=== PATIENT | female | born 1940 | race Caucasian/White ===

== ENCOUNTER 2016-11-29 14:21 | Emergency (ER) | payer MEDICARE ==
[~2016-11-29] VITALS: Ht 157.5 cm; Wt 54.4 kg
[~2016-11-29 14:21] MED LIST: ATEN50TA2 PO; CITA20TA4 PO; FIBETAB AD; HYDR25TAB PO; OMEP20CA3 PO; TRAM50TA2 PO; VITA-176 PO
[2016-11-29 16:55] LABS: RED CELL DISTRIBUTION WIDTH 12.6 % (11.5-14.5)
[2016-11-29 17:14] LABS: METHADONE URINE NEGATIVE (NEGATIVE)
[2016-11-29 17:25] LABS: ALBUMIN 3.1 GM/DL (3.2-5.2); ALBUMIN/GLOBULIN RATIO 0.86 (1.00-1.93); ALKALINE PHOSPHATASE 74 U/L (45-117); ALT/SGPT 18 U/L (12-78); ANION GAP 8 MEQ/L (8-16); AST/SGOT 17 U/L (15-37); BILIRUBIN,DIRECT 0.1 MG/DL (0.0-0.2); BILIRUBIN,TOTAL 0.3 MG/DL (0.2-1.0); BLOOD UREA NITROGEN 9 MG/DL (7-18); CALCIUM LEVEL 8.2 MG/DL (8.8-10.2); CARBON DIOXIDE LEVEL 31 MEQ/L (21-32); CHLORIDE LEVEL 103 MEQ/L (98-107); CREATININE FOR GFR 0.58 MG/DL (0.55-1.02); GLOMERULAR FILTRATION RATE > 60.0 (>39); GLUCOSE, FASTING 78 MG/DL (83-110); POTASSIUM SERUM 3.2 MEQ/L (3.5-5.1); SODIUM LEVEL 142 MEQ/L (136-145); TOTAL PROTEIN 6.7 GM/DL (6.4-8.2)
[2016-11-29] MEDS ORDERED: POTASSIUM CHLORIDE 10 MEQ SR TABLET PO ONE (18:00)
--- NOTE | 2016-11-30 06:24 | ECGEPIP ---
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
[2016-11-30] MEDS ORDERED: CitaloPRAM (CeleXA) 20 MG TAB PO ONE (08:00)
[2016-11-30] MEDS ORDERED: ATENOLOL 50 MG TAB PO ONE (08:00)
[2016-11-30] MEDS ORDERED: OMEPRAZOLE 20 MG CAP PO ONE (08:00)
[2016-11-30] MEDS ORDERED: hydroCHLOROthiazide 12.5 MG CAPSULE PO ONE (08:00)
[2016-11-30 08:27] VITALS: BP 118/80
--- NOTE | 2016-11-30 12:38 | REP ---
CT HEAD WITHOUT CONTRAST: HISTORY: Psychosis. Areas of decreased attenuation are present in the periventricular and subcortical white matter. This represents small vessel ischemic disease. There is no intraparenchymal hemorrhage, mass or midline shift. The ventricular system and cortical sulci are dilated consistent with mild volume loss. There is no extracerebral collection. Mucosal thickening is present in the frontal and ethmoid sinuses. IMPRESSION: 1. Small vessel ischemic disease. 2. Mild volume loss. Signed by Chris Paige MD 11/30/2016 12:41 P
[2016-11-30 16:03] VITALS: BP 124/67
== END 2016-11-30 16:07 ==
LOC: M ED 16:26
DX: F32.9 Major depressive disorder, single episode, unspecified (principal); F29 Unspecified psychosis not due to a substance or known physiological condition; I10 Essential (primary) hypertension; E87.6 Hypokalemia; G89.29 Other chronic pain; M54.9 Dorsalgia, unspecified; Z79.899 Other long term (current) drug therapy
CPT/HCPCS: 36415; 70450; 80048; 80076; 80306; 81001; 84443; 85027; 93005; 99285; G0480

== ENCOUNTER 2018-09-16 16:49 | Inpatient (IN) | payer MEDICARE, OTHER ==
[~2018-09-16] VITALS: Ht 149.9 cm; Wt 63.6 kg
[2018-09-16] MEDS ORDERED: ARIP1TAB4 PO (17:24)
[2018-09-16] MEDS ORDERED: PANT40TA3 PO (17:24)
[2018-09-16] MEDS ORDERED: LORA0.5T11 PO (17:24)
[2018-09-16] MEDS ORDERED: DULO60CA35 PO (17:24)
[2018-09-16] MEDS ORDERED: AMAN100T PO (17:24)
[2018-09-16] MEDS ORDERED: FAMO1TAB11 PO (17:24)
[2018-09-16 17:51] LABS: HEMATOCRIT 41.2 % (36.0-47.0); HEMOGLOBIN 13.9 g/dl (12.0-15.5); MEAN CORPUSCULAR HEMOGLOBIN 31.8 pg (27.0-33.0); MEAN CORPUSCULAR HGB CONC 33.7 g/dl (32.0-36.5); MEAN CORPUSCULAR VOLUME 94.3 fl (80.0-96.0); PLATELET COUNT, AUTOMATED 278 10^3/uL (150-450); RED BLOOD COUNT 4.37 10^6/uL (4.00-5.40); WHITE BLOOD COUNT 4.1 10^3/uL (4.0-10.0)
[2018-09-16] MEDS ORDERED: NS 1,000 ML IV SCH (18:00)
[2018-09-16 18:40] LABS: INFLUENZA A AMPLIFICATION POSITIVE (NEGATIVE); INFLUENZA B AMPLIFICATION NEGATIVE (NEGATIVE)
[2018-09-16 18:42] LABS: ACETAMINOPHEN LEVEL < 2.0 UG/ML (10.0-30.0); ALBUMIN 3.6 GM/DL (3.2-5.2); ALT/SGPT 22 U/L (12-78); BILIRUBIN,DIRECT 0.1 MG/DL (0.0-0.2); BILIRUBIN,TOTAL 0.3 MG/DL (0.2-1.0); BLOOD UREA NITROGEN 17 MG/DL (7-18); CALCIUM LEVEL 8.6 MG/DL (8.8-10.2); CARBON DIOXIDE LEVEL 28 MEQ/L (21-32); CHLORIDE LEVEL 95 MEQ/L (98-107); CREATININE FOR GFR 0.92 MG/DL (0.55-1.30); ETHYL ALCOHOL (ETHANOL) < 0.003 % (0.000-0.010); GLOMERULAR FILTRATION RATE > 60.0 (>39); GLUCOSE, FASTING 101 MG/DL (70-100); POTASSIUM SERUM 4.1 MEQ/L (3.5-5.1); SALICYLATE LEVEL < 1.7 MG/DL (5.0-30.0); SODIUM LEVEL 133 MEQ/L (136-145)
[2018-09-16] MEDS ORDERED: LIDOCAINE 2% 5ML JELLY UROJET TOP ONE (18:45)
--- NOTE | 2018-09-16 18:55 | REP ---
AP PORTABLE CHEST: 09/16/2018. Clinical history: Cough. No prior pertinent study. There is severe dextrorotatory kyphoscoliosis in the thoracic spine centered in the mid-thoracic spine. The curve measures just over 100 degrees on this portable chest. There is extensive interstitial changes, chronic versus acute. This could be bronchitis superimposed on fibrosis or underlying fibrosis alone. Some patchy atelectasis could also be present. The retrocardiac left lower lobe region shows a few air bronchograms that may be chronic atelectasis or consolidation. Small effusions difficult to exclude. Heart size difficult to public health physician with low level of inflation AP portable technique. I suspect borderline to mild cardiomegaly with left atrial enlargement. Some venous hypertension seen. Early interstitial edema difficult to exclude with the interstitial changes that may be chronic fibrosis. The bones are demineralized. The aorta is calcified at the arch and tortuous. Impression: 1. Extensive interstitial changes, chronic versus acute in this patient with no prior studies. 2. Severe thoracic kyphoscoliosis mid thoracic spine, over a 100 degrees curvature. 3. Some retrocardiac left base air bronchograms that may be chronic atelectasis or infiltrate. Effusion is difficult to exclude. 4. Mildly prominent cardiac silhouette with some left atrial enlargement. Some venous congestion suggested that may reflect some underlying interstitial edema in the setting of fibrosis, but this is difficult to discern on a single image. Electronically Signed by Villa Barba MD 09/16/2018 08:16 P
[2018-09-16 19:31] LABS: AMPHETAMINES LEVEL URINE NEGATIVE (NEGATIVE); BARBITURATES URINE NEGATIVE (NEGATIVE); BENZODIAZEPINES URINE NEGATIVE (NEGATIVE); CANNABINOIDS URINE NEGATIVE (NEGATIVE); COCAINE METABOLITE URINE NEGATIVE (NEGATIVE); METHADONE URINE NEGATIVE (NEGATIVE); OPIATES URINE NEGATIVE (NEGATIVE); PHENCYCLIDINE URINE NEGATIVE (NEGATIVE)
[2018-09-16] MEDS ORDERED: cefTRIAXone SOD 1 GM VIAL (J0696) IM ONE (20:00)
[2018-09-16] MEDS ORDERED: LIDOCAINE 1% SDV 5 ML VIAL DILUENT ONE (20:00)
[2018-09-16] MEDS ORDERED: OSELTAMIVIR PHOSPHATE 75 MG CAP (TAMIFLU) PO ONE (20:00)
[2018-09-16] MEDS ORDERED: cefTRIAXone SOD 1 GM in D5W MINI-BAG PLUS 50 ML IV ONE (20:15)
[2018-09-16] MEDS ORDERED: NS 750 ML IV SCH (20:26)
[2018-09-16] MEDS ORDERED: ONDANSETRON 4MG/2ML VIAL (J2405) IV PRN (20:30)
[2018-09-16] MEDS ORDERED: IPRATROPIUM 0.5MG/ALBUTEROL 2.5MG INH SOL UD 3ML (DUONEB)(J7620) NEB PRN (21:00)
[2018-09-16 21:04] LABS: NT-PRO BNP 767 PG/ML (<450)
[2018-09-16] MEDS ORDERED: PILL CRUSHER/CUTTER 1 EACH XX PRN (21:15)
--- NOTE | 2018-09-16 21:39 | REPVR ---
EXAM: CT Chest Without Contrast EXAM DATE/TIME: 09/16/2018 8:50 PM CLINICAL HISTORY: 77 years old, female; Signs and symptoms; Mass, lump, or swelling in the chest; Additional info: Hrct to assess for interstitial lung disease / atypical pneu TECHNIQUE: Axial computed tomography images of the chest without intravenous contrast. All CT scans at this facility use at least one of these dose optimization techniques: automated exposure control; mA and/or kV adjustment per patient size (includes targeted exams where dose is matched to clinical indication); or iterative reconstruction. Coronal and sagittal reformatted images were created and reviewed. COMPARISON: CR Chest, 1 view 09/16/2018 6:12 PM FINDINGS: Lungs: There is no evidence of consolidation of lung. Pleural space: Normal. No pneumothorax. No pleural effusion. Heart: Normal size heart. Mediastinum: Normal appearing trachea. Aorta: There is calcification of the aorta consistent with atherosclerotic changes. The aorta is normal in size, however very tortuous. Lymph nodes: Unremarkable. No enlarged lymph nodes. Bones/joints: There is very severe scoliosis of the thoracic spine. There is no evidence of fracture. Soft tissues: There is a nodular area lateral aspect of the left breast and suggest correlation with mammography. Stomach and bowel: There is a large hiatal hernia with half of the stomach above the diaphragm posterior to the cardiac silhouette. There is stranding density in the lung bases consistent with scarring. There is only mild interstitial prominence at the posterior left lung base. IMPRESSION: 1. Nodular density lateral aspect left breast and I would recommend correlation with mammography. 2. There is severe scoliosis of the thoracic spine. 3. Stranding density in the lung bases consistent with scarring. Mild interstitial prominence at the left lung base may be interstitial scarring. 4. Changes of COPD. 5. Large hiatal hernia with half of the stomach above the diaphragm. Electronically signed by: Shon Montalvo On 09/16/2018 21:39:22 PM
--- NOTE | 2018-09-16 21:46 | HPE ---
DATE OF ADMISSION: 09/16/2018 CHIEF COMPLAINT: The patient presents to the emergency room accompanied by her daughter with being lethargic, poor oral intake, sounding congested with a cough and shortness of breath. HISTORY OF THE PRESENT ILLNESS: The patient is a 77-year-old female. She has a significant past medical history of parkinsonian symptoms, psychosis, hyperlipidemia, anxiety as well as gastroesophageal reflux disease (GERD). She presents to the emergency room with a 2-3 day history of worsening dyspnea on exertion, a cough which she is unable to clear, congested, generalized weakness, lethargic. She denies any abdominal pain, constipation, diarrhea, urinary symptoms. She endorses shortness of breath on exertion. She is noticeably tachypneic. She denies any chest pain. She has a history of frequent urinary tract infection (UTIs). She has not been admitted many times in the past at [facility] so medical record is limited. On chest x-ray, she has extensive interstitial changes, unclear if this is chronic. She has no history of interstitial lung disease, as per the daughter at bedside. Unclear if this is an atypical pneumonia in the setting of flu or superimposed bacterial pneumonia. The patient appears clinically dry, so this is unlikely to be fluid overload. She has dry mucous membranes. Capillary refill times is poor. The patient also has a sick contact at home, as the patient's also has flu-like symptoms. He has not been tested for the flu. PAST MEDICAL HISTORY: See history of the present illness. PAST SURGICAL HISTORY: She has had an oophorectomy, hysterectomy. She had uterine and bladder lifts. HOME MEDICATIONS: - amantadine - aripiprazole - atenolol - famotidine - lorazepam as needed - Protonix - Cymbalta ALLERGIES: No known drug allergies. SOCIAL HISTORY: She denies tobacco, alcohol, or illicit drug use. REVIEW OF SYSTEMS: A 12-point review of systems was completed, all of which were negative except those listed in the history of the present illness. FAMILY HISTORY: Noncontributory. Labs and imaging completed in the emergency room. Temperature 98, pulse 77, respirations of 18, saturating at 95% on room air. Blood pressure 107/62. PHYSICAL EXAMINATION: General: She is an elderly female in no apparent distress. Head is normocephalic, atraumatic Eyes: Extraocular movements are intact. Pupils equal, round, reactive to light. Neck is supple. No jugular venous pressure (JVP). Mucous membranes are dry. Cardiovascular: Regular rate and rhythm. Normal S1, S2. No murmurs, gallops, or rubs. Lungs: She has some coarse crackles diffusely. No wheezing. She is mildly tachypneic. Minimal use of accessory muscles. The abdomen is soft, nontender, nondistended. Positive bowel sounds. No rebound, no guarding. There is no suprapubic tenderness. There is no costovertebral angle (CVA) tenderness. Extremities: No pitting edema or calf tenderness. Skin: Appears to be intact. No rashes, lesions, or breakdown. She has a visible intention tremor in the right hand. She has a history of parkinsonian symptoms. Neurological Exam: She is alert and oriented times two. She moves all extremities. There is no discernible focal neurological deficits. LABS AND IMAGING: Completed in the emergency room. White count of 4, hemoglobin and hematocrit of 13 over 41, platelet count of 278. Chemistry shows a sodium of 133, chloride of 95, BUN and creatinine of 17 over 0.92. TSH within normal limits. UA is noted for pyuria, WBC 68, RBCs 6. Urine toxicology is negative. Blood alcohol level, Tylenol level, salicylate level all unremarkable. She is influenza A positive on the rapid flu test. A chest x-ray shows extensive interstitial changes. There is no comparison with previous exam. The patient was last hospitalized here several years go. This can be interstitial lung disease. This may be an atypical pneumonia. Unlikely to be fluid overload with the clinical picture. The patient is dry on exam. ASSESSMENT AND PLAN: Urinary tract infection. No previous urine specimens to compare, so the patient will be placed on ceftriaxone, <<4:40>> antibiotics as ID and sensitivity show. Tylenol as needed. Will also give gentle fluid hydration as the patient is notably dry during the examination. For influenza with possible atypical pneumonia secondary to possible flu with possible superimposed bacterial pneumonia, unclear if there is underlying interstitial lung disease. Will get a high resolution CAT scan. Will cover for atypical pneumonia with ceftriaxone and Zithromax, as well as cover with Tamiflu. If this is atypical pneumonia secondary to the flu, oxygen as needed. Will send urine Legionella, urine pneumococcal antigen, sputum culture. Prednisone 40 mg daily. If this is an interstitial lung disease, and she is in exacerbation, DuoNebs as needed. Oxygen to keep oxygen saturation greater than 94%. Again, clinical picture did not appear that this is congestive heart failure (CHF). The patient is dry on the exam, not in fluid overload. For the rest of her chronic medical conditions: - For parkinsonian symptoms, continue amantadine. - For mood disorder with psychosis, continue aripiprazole, as well as Cymbalta - GERD. Continue famotidine. - Hypertension. Continue atenolol. - Anxiety. Ativan as needed. Supportive: Deep vein thrombosis (DVT) prophylaxis. Heparin subcu. Gastrointestinal (GI) prophylaxis. The patient is already on a proton pump inhibitor (PPI). Diet: Cardiac. She will be admitted to the medical-surgical unit.
[2018-09-16 22:30] VITALS: BP 156/80
[2018-09-16] MEDS: AMANTADINE 100 MG CAP PO SCH (23:07)
[2018-09-16] MEDS: DULoxetine 30 MG CAP (CYMBALTA) PO SCH (23:07)
[2018-09-16] MEDS: FAMOTIDINE 20 MG TAB PO SCH (23:07)
[2018-09-16] MEDS: ARIPiprazole 2 MG TAB PO SCH (23:08)
[2018-09-17] MEDS: HEPARIN SOD (PORCINE) 5000 UNITS/ML VIAL SC SCH ×3 (05:26→20:22)
[2018-09-17] MEDS: ACETAMINOPHEN TAB 650MG DOSE (2X325MG) PO PRN ×2 (05:27→20:24)
[2018-09-17 06:00] VITALS: BP 165/79
[2018-09-17 06:44] LABS: HEMATOCRIT 38.3 % (36.0-47.0); HEMOGLOBIN 12.4 g/dl (12.0-15.5); MEAN CORPUSCULAR HEMOGLOBIN 31.2 pg (27.0-33.0); MEAN CORPUSCULAR HGB CONC 32.4 g/dl (32.0-36.5); MEAN CORPUSCULAR VOLUME 96.2 fl (80.0-96.0); PLATELET COUNT, AUTOMATED 241 10^3/uL (150-450); RED BLOOD COUNT 3.98 10^6/uL (4.00-5.40); WHITE BLOOD COUNT 2.9 10^3/uL (4.0-10.0)
[2018-09-17 07:12] LABS: BLOOD UREA NITROGEN 15 MG/DL (7-18); CALCIUM LEVEL 7.8 MG/DL (8.8-10.2); CARBON DIOXIDE LEVEL 28 MEQ/L (21-32); CHLORIDE LEVEL 102 MEQ/L (98-107); CREATININE FOR GFR 0.82 MG/DL (0.55-1.30); GLOMERULAR FILTRATION RATE > 60.0 (>39); GLUCOSE, FASTING 89 MG/DL (70-100); POTASSIUM SERUM 3.7 MEQ/L (3.5-5.1); SODIUM LEVEL 137 MEQ/L (136-145)
[2018-09-17] MEDS: PANTOPRAZOLE 40MG TAB (PROTONIX) PO SCH (08:39)
[2018-09-17] MEDS: ATENOLOL 50 MG TAB PO SCH (08:40)
[2018-09-17] MEDS: predniSONE 20 MG TAB PO SCH (08:40)
[2018-09-17] MEDS: OSELTAMIVIR PHOSPHATE 30MG CAPSULE PO SCH ×2 (08:40→20:23)
[2018-09-17] MEDS: LORazepam 0.5 MG TAB PO SCH (08:40)
[2018-09-17] MEDS: AMANTADINE 100 MG CAP PO SCH ×2 (08:40→20:23)
[2018-09-17] MEDS ORDERED: AZITHROMYCIN 250 MG TAB PO SCH (09:00)
--- NOTE | 2018-09-17 09:16 | IPNPDOC ---
Text Note Date of Service The patient was seen on 09/17/18. NOTE Subjective: Patient is 77-year-old female with PMHx of Parkinsonian symptoms, DLP, Anxiety / Psychosis, Hx of recurrent UTIs, and GERD, presented to the ER with 2- 3 day history of worsening shortness of breath associated with a cough. In the ER, patient was found to be influenza A positive in her urine analysis was consistent with urinary tract infection. Hospitalist service was called for evaluation and treatment. Patient was seen and examined at the bedside. Currently she notes that her breathing is all right. Denies any significant cough or palpitations. Denies chest pain. Denies nausea, vomiting, abdominal pain, constipation, diarrhea or discomfort with urination at this point. Objective: Vitals (See below) General: Lying in bed, no acute distress, comfortable, Awake / Alert HEENT: NC, AT CVS: RRR, +S1S2 Lungs: Fair air entry b/l, no evidence of wheezing, rhonchi, rales Abdomen: Soft, ND, NT Extremities: No evidence of edema, - Calf tenderness Assessment and plan: Urinary tract infection - Patient has a history recurrent UTI - Hemodynamically stable and afebrile - Urinalysis consistent with infection - Urine culture 09/16: Pending - c/w Ceftriaxone (Day #2) SOB / Cough - likely 2/2 Influenza A - Patient notes that her breathing is doing all right - Auscultation without any adventitious sounds - c/w Tamiflu (Day #2) - Currently on Prednisone; will evaluate and taper Leukopenia - likely 2/2 infection - Afebrile - Will continue to follow Nodular density at lateral aspect of left breast - Discussed result with patient and her daughter. Patient and daughter have both agree to follow-up as outpatient - Advised outpatient Mammogram Hypertension - c/w Atenolol Elevated BNP - No evidence of fluid overload - ECHO ordered Parkinsonian symptoms - c/w amantadine Mood disorder with psychosis / Anxiety - c/w Aripiprazole and Duloxetine - c/w Ativan GERD - c/w Protonix and Famotidine DVT Prophylaxis - Heparin VS,Fishbone, I+O VS, Fishbone, I+O Laboratory Tests 09/16/18 17:44 Red Blood Count 4.37, Mean Corpuscular Volume 94.3, Mean Corpuscular Hemoglobin 31.8, Mean Corpuscular Hemoglobin Concent 33.7, Red Cell Distribution Width 13.6 09/17/18 06:01 Red Blood Count 3.98 L, Mean Corpuscular Volume 96.2 H, Mean Corpuscular Hemoglobin 31.2, Mean Corpuscular Hemoglobin Concent 32.4, Red Cell Distribution Width 13.5, Calcium Level 7.8 L Vital Signs Date Time Temp Pulse Resp B/P (MAP) Pulse Ox O2 Delivery O2 Flow Rate FiO2 09/17/18 06:00 99.4 76 20 165/79 (107) 92 09/16/18 17:28 Room Air I&O- Last 24 Hours up to 6 AM 09/17/18 06:00 Intake Total 240 ml Output Total 450 ml Balance -210 ml GME ATTESTATION GME ATTESTATION My faculty preceptor for this patient encounter was physically present during the encounter and was fully available. All aspects of the patient interview, examination, medical decision making process, and medical care plan development were reviewed and approved by the faculty preceptor. The faculty preceptor is aware and concurs with the plan as stated in the body of this note and will attest to such by his/her cosignature. ATTENDING NOTE I, Marci Tovar, have both independently examined this patient as well as reviewed the documentation. I have discussed in detail with the resident the findings and plan of treatment as documented in the residents documentation. I will continue to follow the patient and offer further guidance to the patients care as necessary during this hospital stay. ELSA MUNOZ DO Sep 17, 2018 09:16 MARCI TOVAR MD Sep 17, 2018 12:32
[2018-09-17 14:00] VITALS: BP 139/82
--- NOTE | 2018-09-17 18:00 | ECHO ---
DATE OF PROCEDURE: 09/17/2018 REFERRING PHYSICIAN: Dr. Peters INDICATION: Dyspnea. HEIGHT: 150 cm WEIGHT: 63.6 kg 2D MEASUREMENTS: Left atrium: 3.5 cm Left atrial volume index: 27 Aortic annulus: 2.0 cm Aortic root: 3.3 cm Ventricular septum: 1.02 cm Posterior wall: 0.92 cm Left ventricle diastole: 3.7 cm Inferior vena cava: 1.7 cm DOPPLER MEASUREMENTS: Aortic valve velocity: 154 cm/s LVOT velocity: 98.2 cm/s LVOT VTI: 21.7 cm Mitral E velocity: 91.7 cm/s Mitral A velocity: 109 cm/s Mitral deceleration time: 306 ms Very mild tricuspid regurgitation. Estimated right ventricle systolic pressure: 34-39 mmHg. Pulmonary artery systolic pressure: 43 mmHg by pulmonary acceleration time. MITRAL ANNULAR TISSUE DOPPLER: E prime septal: 5.4 cm/s E prime lateral: 4.8 cm/s DESCRIPTION: Rhythm was sinus. Image quality was fair. No pericardial effusion. This was a 2D, M-mode, color flow Doppler and pulse wave Doppler examination and included mitral annular tissue Doppler. No pericardial effusion. CONCLUSIONS: 1. Normal left ventricle internal dimensions and wall thickness. Normal regional left ventricular (LV) wall motion and wall thickening. Normal LV systolic function. Left ventricular ejection fraction (LVEF) 65% by visual estimate. Grade 1 LV diastolic dysfunction. 2. Suggestive of mild elevation of pulmonary artery systolic pressure (43 mmHg) versus mild elevation of estimated right ventricle systolic pressure (34-39 mmHg). 3. Mild aortic valve sclerosis of a 3-cusp aortic valve. No aortic regurgitation. 4. Moderate mitral annular calcification. No mitral stenosis or regurgitation. 5. Otherwise normal appearing echocardiogram Doppler findings.
--- NOTE | 2018-09-17 19:29 | ECGEPIP ---
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
[2018-09-17] MEDS: cefTRIAXone SOD 1 GM in D5W MINI-BAG PLUS 50 ML IV SCH (20:22)
[2018-09-17] MEDS: DULoxetine 30 MG CAP (CYMBALTA) PO SCH (20:23)
[2018-09-17] MEDS: ARIPiprazole 2 MG TAB PO SCH (20:23)
[2018-09-17] MEDS: FAMOTIDINE 20 MG TAB PO SCH (20:24)
[2018-09-17 22:00] VITALS: BP 154/83
[2018-09-18 06:00] VITALS: BP 146/74
[2018-09-18] MEDS: HEPARIN SOD (PORCINE) 5000 UNITS/ML VIAL SC SCH ×3 (06:10→21:43)
[2018-09-18 07:24] LABS: HEMATOCRIT 36.9 % (36.0-47.0); HEMOGLOBIN 12.2 g/dl (12.0-15.5); MEAN CORPUSCULAR HGB CONC 33.1 g/dl (32.0-36.5); MEAN CORPUSCULAR VOLUME 93.7 fl (80.0-96.0); PLATELET COUNT, AUTOMATED 235 10^3/uL (150-450); RED BLOOD COUNT 3.94 10^6/uL (4.00-5.40)
[2018-09-18 07:53] LABS: BLOOD UREA NITROGEN 15 MG/DL (7-18); CALCIUM LEVEL 8.5 MG/DL (8.8-10.2); CARBON DIOXIDE LEVEL 28 MEQ/L (21-32); CHLORIDE LEVEL 104 MEQ/L (98-107); CREATININE FOR GFR 0.74 MG/DL (0.55-1.30); GLOMERULAR FILTRATION RATE > 60.0 (>39); GLUCOSE, FASTING 81 MG/DL (70-100); POTASSIUM SERUM 3.2 MEQ/L (3.5-5.1); SODIUM LEVEL 139 MEQ/L (136-145)
[2018-09-18] MEDS: OSELTAMIVIR PHOSPHATE 30MG CAPSULE PO SCH ×2 (09:26→20:29)
[2018-09-18] MEDS: predniSONE 20 MG TAB PO SCH (09:26)
[2018-09-18] MEDS: ATENOLOL 50 MG TAB PO SCH (09:26)
[2018-09-18] MEDS: LORazepam 0.5 MG TAB PO SCH (09:26)
[2018-09-18] MEDS: PANTOPRAZOLE 40MG TAB (PROTONIX) PO SCH (09:26)
[2018-09-18] MEDS: AMANTADINE 100 MG CAP PO SCH ×2 (09:26→20:29)
[2018-09-18] MEDS ORDERED: PRED10TA2 PO (09:49)
[2018-09-18] MEDS ORDERED: POTASSIUM CHLORIDE 10 MEQ SR TABLET PO ONE (10:00)
[2018-09-18] MEDS ORDERED: TAMI30CA PO (11:25)
--- NOTE | 2018-09-18 12:18 | IPNPDOC ---
Text Note Date of Service The patient was seen on 09/18/18. NOTE Subjective: Patient is 77-year-old female with PMHx of Parkinsonian symptoms, DLP, Anxiety / Psychosis, Hx of recurrent UTIs, and GERD, presented to the ER with 2- 3 day history of worsening shortness of breath associated with a cough. In the ER, patient was found to be influenza A positive in her urine analysis was consistent with urinary tract infection. Hospitalist service was called for evaluation and treatment. Patient was seen and examined at the bedside. Currently she notes that her breathing is all right. Denies any significant cough or palpitations. Denies chest pain. Denies nausea, vomiting, abdominal pain, constipation, diarrhea or discomfort with urination at this point. Objective: Vitals (See below) General: Lying in bed, no acute distress, comfortable, Awake / Alert HEENT: NC, AT CVS: RRR, +S1S2 Lungs: Fair air entry b/l, no evidence of wheezing, rhonchi, rales Abdomen: Soft, ND, NT Extremities: No evidence of edema, - Calf tenderness Assessment and plan: SOB / Cough - likely 2/2 Influenza A - Patient notes that her breathing is doing better - Auscultation without any adventitious sounds - c/w Tamiflu (Day #3) - c/w Prednisone; will taper as breathing improves Abnormal urinalysis; unlikely 2/2 UTI - Patient has a history recurrent UTI - Hemodynamically stable and afebrile - Urinalysis consistent with infection - Urine culture 09/16: Negative - c/w Ceftriaxone (Day #3) Leukopenia - likely 2/2 infection - Afebrile - Will continue to follow Nodular density at lateral aspect of left breast - Discussed result with patient and her daughter. Patient and daughter have both agree to follow-up as outpatient - Advised outpatient Mammogram Hypertension - c/w Atenolol Elevated BNP - No evidence of fluid overload - ECHO 09/17: EF 65%, G1DD Parkinsonian symptoms - c/w Amantadine Mood disorder with psychosis / Anxiety - c/w Aripiprazole and Duloxetine - c/w Ativan GERD - c/w Protonix and Famotidine DVT Prophylaxis - Heparin Disposition: - Has not cleared physical therapy; will be reevaluated tomorrow VS,Abdirahman, I+O VS, Abdirahman, I+O Laboratory Tests 09/18/18 07:11 Red Blood Count 3.94 L, Mean Corpuscular Volume 93.7, Mean Corpuscular Hemoglobin 31.0, Mean Corpuscular Hemoglobin Concent 33.1, Red Cell Distribution Width 13.2, Calcium Level 8.5 L Vital Signs Date Time Temp Pulse Resp B/P (MAP) Pulse Ox O2 Delivery O2 Flow Rate FiO2 09/18/18 09:26 58 146/74 09/18/18 06:00 98.0 20 94 09/16/18 17:28 Room Air I&O- Last 24 Hours up to 6 AM 09/18/18 06:00 Intake Total 1640 ml Output Total 1550 ml Balance 90 ml FRANCOISE TOVAR MD Sep 18, 2018 12:18
[2018-09-18 14:00] VITALS: BP 134/90
[2018-09-18] MEDS: cefTRIAXone SOD 1 GM in D5W MINI-BAG PLUS 50 ML IV SCH (20:28)
[2018-09-18] MEDS: ARIPiprazole 2 MG TAB PO SCH (20:29)
[2018-09-18] MEDS: FAMOTIDINE 20 MG TAB PO SCH (20:29)
[2018-09-18] MEDS: DULoxetine 30 MG CAP (CYMBALTA) PO SCH (20:29)
[2018-09-18 22:00] VITALS: BP 160/84
[2018-09-19] MEDS: HEPARIN SOD (PORCINE) 5000 UNITS/ML VIAL SC SCH ×2 (05:23→14:28)
[2018-09-19 06:00] VITALS: BP 159/85
[2018-09-19 06:45] LABS: HEMATOCRIT 39.1 % (36.0-47.0); MEAN CORPUSCULAR HGB CONC 33.2 g/dl (32.0-36.5); MEAN CORPUSCULAR VOLUME 93.3 fl (80.0-96.0); PLATELET COUNT, AUTOMATED 272 10^3/uL (150-450); RED BLOOD COUNT 4.19 10^6/uL (4.00-5.40); WHITE BLOOD COUNT 3.3 10^3/uL (4.0-10.0)
[2018-09-19 07:03] LABS: BLOOD UREA NITROGEN 14 MG/DL (7-18); CALCIUM LEVEL 8.7 MG/DL (8.8-10.2); CARBON DIOXIDE LEVEL 31 MEQ/L (21-32); CHLORIDE LEVEL 100 MEQ/L (98-107); CREATININE FOR GFR 0.71 MG/DL (0.55-1.30); GLOMERULAR FILTRATION RATE > 60.0 (>39); GLUCOSE, FASTING 83 MG/DL (70-100); POTASSIUM SERUM 3.4 MEQ/L (3.5-5.1); SODIUM LEVEL 137 MEQ/L (136-145)
[2018-09-19] MEDS ORDERED: POTASSIUM CHLORIDE 10 MEQ SR TABLET PO ONE (07:45)
[2018-09-19] MEDS: LORazepam 0.5 MG TAB PO SCH (08:49)
[2018-09-19 08:50] VITALS: BP 167/83
[2018-09-19] MEDS: PANTOPRAZOLE 40MG TAB (PROTONIX) PO SCH (08:50)
[2018-09-19] MEDS: ATENOLOL 50 MG TAB PO SCH (08:50)
[2018-09-19] MEDS: predniSONE 20 MG TAB PO SCH (08:51)
[2018-09-19] MEDS: AMANTADINE 100 MG CAP PO SCH (08:53)
[2018-09-19] MEDS: OSELTAMIVIR PHOSPHATE 30MG CAPSULE PO SCH (08:53)
[2018-09-19 09:16] VITALS: BP 167/83
[2018-09-19] MEDS: ACETAMINOPHEN TAB 650MG DOSE (2X325MG) PO PRN (10:46)
[2018-09-19 12:39] LABS: BASO % 0.4 % (0.0-1.0); HEMATOCRIT 42.7 % (36.0-47.0); HEMOGLOBIN 13.9 g/dl (12.0-15.5); LYMPH # 0.7 10^3/uL (1.5-4.5); LYMPH % 13.4 % (24.0-44.0); MEAN CORPUSCULAR HEMOGLOBIN 30.9 pg (27.0-33.0); MEAN CORPUSCULAR HGB CONC 32.6 g/dl (32.0-36.5); MEAN CORPUSCULAR VOLUME 94.9 fl (80.0-96.0); MONO # 0.2 10^3/uL (0.0-0.8); MONO % 3.2 % (0.0-5.0); NEUTROPHILS # 4.5 10^3/uL (1.8-7.7); NEUTROPHILS % 82.8 % (36.0-66.0); PLATELET COUNT, AUTOMATED 278 10^3/uL (150-450); WHITE BLOOD COUNT 5.4 10^3/uL (4.0-10.0)
--- NOTE | 2018-09-19 13:21 | IPNPDOC ---
Text Note Date of Service The patient was seen on 09/19/18. NOTE Subjective: Patient is 77-year-old female with PMHx of Parkinsonian symptoms, DLP, Anxiety / Psychosis, Hx of recurrent UTIs, and GERD, presented to the ER with 2- 3 day history of worsening shortness of breath associated with a cough. In the ER, patient was found to be influenza A positive in her urine analysis was consistent with urinary tract infection. Hospitalist service was called for evaluation and treatment. Patient was seen and examined at the bedside. Currently she is seen standing and ambulating out of the bathroom. Did not have any difficulty with ambulation. Had remained oriented 3 this morning. Denied any nausea, vomiting, chest pain, or palpitations. Still noted SOB however reported this is her baseline. Denied any constipation, diarrhea or urinary discomfort. Objective: Vitals (See below) General: Lying in bed, no acute distress, comfortable, Awake / Alert, Oriented x3 this morning HEENT: NC, AT CVS: RRR, +S1S2 Lungs: Fair air entry b/l, auscultation is without wheezing / rhonchi / rales Abdomen: Soft, Non-distended without tenderness Extremities: LE are without edema, - Calf tenderness Assessment and plan: Reported confusion - Discussion did not reveal any confusion; remains AAOx3 - No focal deficits - Repeat CBC / CMP / Mg / Lactic acid - Will order CT head without contrast SOB / Cough - likely 2/2 Influenza A - Patient notes that her breathing is doing better - Auscultation without any adventitious sounds - c/w Tamiflu (Day #4) - c/w Prednisone; will taper as breathing improves Abnormal urinalysis; unlikely 2/2 UTI - Patient has a history recurrent UTI - Hemodynamically stable and afebrile - Urinalysis consistent with infection - Urine culture 09/16: Negative - Will DC Ceftriaxone (Completed 3 day course) Leukopenia - likely 2/2 infection - Afebrile - Will continue to follow Nodular density at lateral aspect of left breast - Discussed result with patient and her daughter. Patient and daughter have both agree to follow-up as outpatient - Advised outpatient Mammogram Hypertension - c/w Atenolol Elevated BNP - No evidence of fluid overload - ECHO 09/17: EF 65%, G1DD Parkinsonian symptoms - c/w Amantadine Mood disorder with psychosis / Anxiety - c/w Aripiprazole and Duloxetine - c/w Ativan GERD - c/w Protonix and Famotidine DVT Prophylaxis - Heparin Disposition: - Cleared PT this morning; however reported to have confusion this afternoon - will repeat evaluation VS,Abdirahman, I+O VS, Nathenbone, I+O Laboratory Tests 09/19/18 05:54 Red Blood Count 4.19, Mean Corpuscular Volume 93.3, Mean Corpuscular Hemoglobin 31.0, Mean Corpuscular Hemoglobin Concent 33.2, Red Cell Distribution Width 13.2, Calcium Level 8.7 L 09/19/18 12:30 Red Blood Count 4.50, Mean Corpuscular Volume 94.9, Mean Corpuscular Hemoglobin 30.9, Mean Corpuscular Hemoglobin Concent 32.6, Red Cell Distribution Width 13.2, Neutrophils (%) (Auto) 82.8 H, Lymphocytes (%) (Auto) 13.4 L, Monocytes (%) (Auto) 3.2, Eosinophils (%) (Auto) 0.0, Basophils (%) (Auto) 0.4, Neutrophils # (Auto) 4.5, Lymphocytes # (Auto) 0.7 L, Monocytes # (Auto) 0.2, Eosinophils # (Auto) 0.0, Basophils # (Auto) 0.0 Vital Signs Date Time Temp Pulse Resp B/P (MAP) Pulse Ox O2 Delivery O2 Flow Rate FiO2 09/19/18 09:16 97.3 73 19 167/83 (111) 96 09/16/18 17:28 Room Air I&O- Last 24 Hours up to 6 AM 09/19/18 06:00 Intake Total 480 ml Output Total 900 ml Balance -420 ml FRANCOISE TOVAR MD Sep 19, 2018 13:21
--- NOTE | 2018-09-19 13:27 | REP ---
CT Head without contrast HISTORY: Confusion COMPARISON: 11/30/2016 Areas of decreased attenuation are present in the periventricular and subcortical white matter. This represents small-vessel ischemic disease. There is no intraparenchymal hemorrhage, acute infarct, mass or midline shift. The ventricular system and cortical sulci are dilated consistent with mild volume loss. There is no extra cerebral collection. There is no fracture. Mucosal thickening is present in the frontal sinuses. IMPRESSION: 1. Small vessel ischemic disease. 2. Mild volume loss. Electronically Signed by Chris Paige MD 09/19/2018 01:19 P
[2018-09-19 13:30] LABS: ALBUMIN 3.6 GM/DL (3.2-5.2); ALT/SGPT 29 U/L (12-78); BILIRUBIN,TOTAL 0.4 MG/DL (0.2-1.0); BLOOD UREA NITROGEN 15 MG/DL (7-18); CALCIUM LEVEL 9.1 MG/DL (8.8-10.2); CARBON DIOXIDE LEVEL 28 MEQ/L (21-32); CHLORIDE LEVEL 99 MEQ/L (98-107); CREATININE FOR GFR 0.87 MG/DL (0.55-1.30); GLOMERULAR FILTRATION RATE > 60.0 (>39); GLUCOSE, FASTING 125 MG/DL (70-100); MAGNESIUM LEVEL 2.3 MG/DL (1.8-2.4); POTASSIUM SERUM 3.8 MEQ/L (3.5-5.1); SODIUM LEVEL 136 MEQ/L (136-145); TOTAL PROTEIN 7.9 GM/DL (6.4-8.2)
[2018-09-19 14:35] VITALS: BP 168/94
--- NOTE | 2018-09-19 16:02 | DS.PDOC ---
Discharge Summary General Date of Admission Sep 16, 2018 at 20:26 Date of Discharge 09/19/2018 Discharge Summary PROCEDURES PERFORMED DURING STAY: [None]. ADMITTING DIAGNOSES / DISCHARGE DIAGNOSES: SOB / Cough - likely 2/2 Influenza A Abnormal urinalysis; unlikely 2/2 UTI Leukopenia - likely 2/2 infection Nodular density at lateral aspect of left breast Hypertension Elevated BNP Parkinsonian symptoms Mood disorder with psychosis / Anxiety GERD DVT Prophylaxis COMPLICATIONS/CHIEF COMPLAINT: Shortness of breath HISTORY OF PRESENT ILLNESS: Patient is 77-year-old female with PMHx of Parkinsonian symptoms, DLP, Anxiety / Psychosis, Hx of recurrent UTIs, and GERD, presented to the ER with 2-3 day history of worsening shortness of breath associated with a cough. In the ER, patient was found to be influenza A positive in her urine analysis was consistent with urinary tract infection. Hospitalist service was called for evaluation and treatment. HOSPITAL COURSE: Reported confusion - My discussion with her did not reveal any confusion; remains AAOx3, is aware of who the president is and understands why she is in the hospital - No focal deficits - Repeat CBC / CMP / Mg / Lactic acid - CT head without contrast 09/19: - Has cleared physical therapy - Discussed care plan with daughter who was present at bedside; understands that she will require outpatient HomeCare services upon discharge - is agreeable SOB / Cough - likely 2/2 Influenza A - Patient notes that her breathing is doing better - Auscultation without any adventitious sounds - c/w Tamiflu (Day #4) - c/w Prednisone; will taper as breathing improves Abnormal urinalysis; unlikely 2/2 UTI - Patient has a history recurrent UTI - Hemodynamically stable and afebrile - Urinalysis consistent with infection - Urine culture 09/16: Negative - Will DC Ceftriaxone (Completed 3 day course) Leukopenia - likely 2/2 infection - Afebrile - Will continue to follow Nodular density at lateral aspect of left breast - Discussed result with patient and her daughter. Patient and daughter have both agree to follow-up as outpatient - Advised outpatient Mammogram Hypertension - c/w Atenolol Elevated BNP - No evidence of fluid overload - ECHO 09/17: EF 65%, G1DD Parkinsonian symptoms - c/w Amantadine Mood disorder with psychosis / Anxiety - c/w Aripiprazole and Duloxetine - c/w Ativan GERD - c/w Protonix and Famotidine DVT Prophylaxis - Heparin DISCHARGE MEDICATIONS: Please see below. ALLERGIES: Please see below. PHYSICAL EXAMINATION ON DISCHARGE: Vitals (See below) General: Lying in bed, no acute distress, comfortable, Awake / Alert, Oriented x3 HEENT: NC, AT CVS: RRR, +S1S2 Lungs: Fair air entry b/l, auscultation is without wheezing / rhonchi / rales Abdomen: Soft, Non-distended without tenderness Extremities: LE are without edema, - Calf tenderness LABORATORY DATA: Please see below. ACTIVITY: [As tolerated]. DISCHARGE PLAN: Follow up with Dr. Lexus Carrasco within 7 days Remain complaint with treatment plan and medications Return to the ER if you experience any problems DISPOSITION: Home with services DISCHARGE CONDITION: [Stable]. TIME SPENT ON DISCHARGE: Greater than [35] minutes. Vital Signs/I&Os Vital Signs Date Time Temp Pulse Resp B/P (MAP) Pulse Ox O2 Delivery O2 Flow Rate FiO2 09/19/18 14:35 97.2 67 20 168/94 (118) 97 09/16/18 17:28 Room Air I&O- Last 24 Hours up to 6 AM 09/19/18 06:00 Intake Total 480 ml Output Total 900 ml Balance -420 ml Laboratory Data Labs 24H Laboratory Tests 2 09/19/18 05:54: Nucleated Red Blood Cells % (auto) 0.0, Anion Gap 6L, Glomerular Filtration Rate > 60.0, Blood Urea Nitrogen 14, Creatinine 0.71, Sodium Level 137, Potassium Level 3.4L, Chloride Level 100, Carbon Dioxide Level 31, Calcium Level 8.7L 09/19/18 12:30: Nucleated Red Blood Cells % (auto) 0.0, Anion Gap 9, Glomerular Filtration Rate > 60.0, Blood Urea Nitrogen 15, Creatinine 0.87, Sodium Level 136, Potassium Level 3.8, Chloride Level 99, Carbon Dioxide Level 28, Calcium Level 9.1, Im mature Granulocyte % (Auto) 0.2, White Blood Count 5.4, Red Blood Count 4.50, Hemoglobin 13.9, Hematocrit 42.7, Mean Corpuscular Volume 94.9, Mean Corpuscular Hemoglobin 30.9, Mean Corpuscular Hemoglobin Concent 32.6, Red Cell Distribution Width 13.2, Platelet Count 278, Neutrophils (%) (Auto) 82.8H, Lymphocytes (%) (Auto) 13.4L, Monocytes (%) (Auto) 3.2, Eosinophils (%) (Auto) 0.0, Basophils (%) (Auto) 0.4, Neutrophils # (Auto) 4.5, Lymphocytes # (Auto) 0.7L, Monocytes # (Auto) 0.2, Eosinophils # (Auto) 0.0, Basophils # (Auto) 0.0, Lactic Acid Level 2.1*H, Aspartate Amino Transf (AST/SGOT) 33, Alanine Aminotransferase (ALT/SGPT) 29, Alkaline Phosphatase 99, Total Bilirubin 0.4, Total Protein 7.9, Albumin 3.6, Magnesium Level 2.3, Albumin/Globulin Ratio 0.84L CBC/BMP Laboratory Tests 09/19/18 05:54 Red Blood Count 4.19, Mean Corpuscular Volume 93.3, Mean Corpuscular Hemoglobin 31.0, Mean Corpuscular Hemoglobin Concent 33.2, Red Cell Distribution Width 13.2, Calcium Level 8.7 L 09/19/18 12:30 Red Blood Count 4.50, Mean Corpuscular Volume 94.9, Mean Corpuscular Hemoglobin 30.9, Mean Corpuscular Hemoglobin Concent 32.6, Red Cell Distribution Width 13.2, Calcium Level 9.1, Neutrophils (%) (Auto) 82.8 H, Lymphocytes (%) (Auto) 13.4 L, Monocytes (%) (Auto) 3.2, Eosinophils (%) (Auto) 0.0, Basophils (%) (Auto) 0.4, Neutrophils # (Auto) 4.5, Lymphocytes # (Auto) 0.7 L, Monocytes # (Auto) 0.2, Eosinophils # (Auto) 0.0, Basophils # (Auto) 0.0, Aspartate Amino Transf (AST/SGOT) 33, Alanine Aminotransferase (ALT/SGPT) 29, Alkaline Phosphatase 99, Total Bilirubin 0.4, Total Protein 7.9, Albumin 3.6 Microbiology Microbiology 09/16/18 Urine Culture - Final, Complete Discharge Medications Scheduled (Duloxetine Hydrocloride) 60 Mg Cap, 60 MG PO QHS, (Reported) Amantadine HCl (Amantadine HCl) 100 Mg Tab, 100 MG PO BID, (Reported) Aripiprazole (Aripiprazole) 2 Mg Tab, 1 MG PO QHS, (Reported) Atenolol (Atenolol) 50 Mg Tab, 50 MG PO DAILY, (Reported) Famotidine (Famotidine) 20 Mg Tab, 20 MG PO QHS, (Reported) Lorazepam (Lorazepam) 0.5 Mg Tab, 0.5 MG PO DAILY, (Reported) Oseltamivir Phosphate (Tamiflu) 30 Mg Cap, 30 MG PO BID Pantoprazole Sodium (Pantoprazole Sodium) 40 Mg Tab, 40 MG PO DAILY, (Reported) Prednisone (Prednisone) 10 Mg Tab, 10 MG PO TAPER Take 4 tabs daily x 3 days, then 3 tabs daily x 3 days, then 2 tabs daily x 3 days, then 1 tab daily x 3 days and stop Allergies Coded Allergies: No Known Allergies (Unverified , 11/29/16) FRANCOISE TOVAR MD Sep 19, 2018 16:02
[2018-09-20 00:13] LABS: BODY FLUID CULTURE Not Indicated (.); LEGIONELLA ANTIGEN URINE Negative (Negative); ORGANISM ID Not indicated. (.); SPECIMEN SOURCE Urine (.); URINE STREP PNEUMONIAE ANTIGEN Negative (Negative)
== END 2018-09-19 16:10 | disposition home health service (06) | DRG 194 ==
LOC: M ED 16:49 → M ED INP 20:26 → M MS5PR 22:23
PROVIDERS: ADMIT Internal Medicine; ATTEND Internal Medicine
DX: J10.1 Influenza due to other identified influenza virus with other respiratory manifestations (principal); N39.0 Urinary tract infection, site not specified; G20 Parkinson's disease; K21.9 Gastro-esophageal reflux disease without esophagitis; F39 Unspecified mood [affective] disorder; F41.9 Anxiety disorder, unspecified; I10 Essential (primary) hypertension; N63.0 Unspecified lump in unspecified breast; Z79.899 Other long term (current) drug therapy; E78.5 Hyperlipidemia, unspecified

== ENCOUNTER → 2020-11-14 | Outpatient (REF) | payer MEDICARE ==
[~2020-11-14] MED LIST changes: +AMAN100T PO; +ARIP1TAB4 PO; -CITA20TA4 PO; +CITA20TA6 PO; +DULO60CA35 PO; +FAMO1TAB11 PO; +HYDR-2541 PO; -HYDR25TAB PO; +LORA0.5T5 PO; +OMEP1CAP73 PO; -OMEP20CA3 PO; +PANT40TA29 PO; +PRED10TA2 PO; +TAMI30CA PO
[2020-11-14 13:06] LABS: AMORPHOUS SEDIMENT SMALL (NEGATIVE); APPEARANCE, URINE CLOUDY (CLEAR); BACTERIA, URINE AUTO NEGATIVE (NEGATIVE); BILIRUBIN, URINE AUTO NEGATIVE (NEGATIVE); BLOOD, URINE BLOOD NEGATIVE (NEGATIVE); COLOR, URINE YELLOW (YELLOW); GLUCOSE, URINE (UA) AUTO NEGATIVE (NEGATIVE); KETONE, URINE AUTO NEGATIVE (NEGATIVE); LEUKOCYTE ESTERASE, URINE AUTO 2+ (NEGATIVE); MUCUS, URINE SMALL (NEGATIVE); NITRITE, URINE AUTO NEGATIVE (NEGATIVE); PROTEIN, URINE AUTO NEGATIVE (NEGATIVE); RBC, URINE AUTO 4 /HPF (0-3); SPECIFIC GRAVITY URINE AUTO 1.025 (1.002-1.035); SQUAMOUS EPITHELIAL CELL UR AU 2 /HPF (0-6); WBC, URINE AUTO 18 /HPF (0-3)
== END ==
LOC: M LAB REF 11:50
PROVIDERS: ATTEND Obstetrics & Gynecology
DX: R30.0 Dysuria (principal)

== ENCOUNTER 2021-12-23 14:05 | Emergency (ER) | payer MEDICARE ==
[~2021-12-23] VITALS: Ht 147.3 cm; Wt 61.4 kg
[2021-12-23] MEDS ORDERED: PREG75CA2 (14:23)
[2021-12-23] MEDS ORDERED: NS 500 ML IV ONE (19:45)
[2021-12-23] MEDS ORDERED: ACETAMINOPHEN TAB 650MG DOSE (2X325MG) PO ONE (19:50)
[2021-12-23 20:07] LABS: BASO % 0.3 % (0.0-1.0); EOS % 0.6 % (0.0-3.0); HEMATOCRIT 45.2 % (36.0-47.0); HEMOGLOBIN 14.9 g/dl (12.0-15.5); LYMPH # 2.4 10^3/uL (1.5-5.0); LYMPH % 35.1 % (24.0-44.0); MEAN CORPUSCULAR HEMOGLOBIN 31.9 pg (27.0-33.0); MEAN CORPUSCULAR VOLUME 96.8 fl (80.0-96.0); MONO # 0.7 10^3/uL (0.0-0.8); MONO % 9.8 % (2.0-8.0); NEUTROPHILS # 3.7 10^3/uL (1.5-8.5); NEUTROPHILS % 54.1 % (36.0-66.0); PLATELET COUNT, AUTOMATED 328 10^3/uL (150-450); RED BLOOD COUNT 4.67 10^6/uL (4.00-5.40); WHITE BLOOD COUNT 6.8 10^3/uL (4.0-10.0)
[2021-12-23 20:34] LABS: ALBUMIN 3.9 GM/DL (3.2-5.2); BILIRUBIN,DIRECT 0.3 MG/DL (0.0-0.2); CALCIUM LEVEL 9.7 MG/DL (8.8-10.2); CREATININE FOR GFR 1.09 MG/DL (0.55-1.30); GLOMERULAR FILTRATION RATE 51.4 (>32); TOTAL PROTEIN 8.4 GM/DL (6.4-8.2)
[2021-12-23 21:23] VITALS: BP 141/74
== END 2021-12-23 21:50 | disposition left against medical advice (07) ==
LOC: M ED 14:05
DX: R50.9 Fever, unspecified (principal); R41.82 Altered mental status, unspecified; E86.0 Dehydration; F33.3 Major depressive disorder, recurrent, severe with psychotic symptoms; F32.A Depression, unspecified; I10 Essential (primary) hypertension; K21.9 Gastro-esophageal reflux disease without esophagitis; Z53.21 Procedure and treatment not carried out due to patient leaving prior to being seen by health care provider; Z79.899 Other long term (current) drug therapy